=== PATIENT | female | born 1985 | race Caucasian/White ===

== ENCOUNTER 2024-01-24 08:25 | Outpatient (OUT) | payer BC, SELFPAY ==
--- NOTE | 2024-01-24 08:48 | XR_ITS ---
The [address] [address] Patient Name: DARY CAR MRN: [id number] date: 1985 Sex: F Assigned Patient Location: LAB Current Patient Location: LAB Accession/Order Number: [id number] Exam Date: 01/24/2024 09:20 Report Date: 01/24/2024 10:17 At the request of: YAMINI ROCHA Procedure: XR knee RT 3V PROCEDURE: XR knee RT 3V COMPARISON: None. HISTORY: Chronic Pain Of Right Knee M25.561 FINDINGS: BONES:No fracture, acute abnormality, or significant arthropathy. SOFT TISSUES:Moderate medial knee soft tissue swelling EFFUSION:None visible. OTHER: Negative. XR/XR knee RT 3V IMPRESSION: Medial knee soft tissue swelling of unknown etiology Electronically authenticated by: PAULINA CARDOZA Date: 01/24/2024 10:17
[2024-01-24 08:53] LABS: Basophils Percent Auto 0.3 % (0.2-2.0); Eosinophils Absolute Auto 0.2 10^3/uL (0.0-0.7); Eosinophils Percent Auto 2.9 % (0.9-7.0); Hematocrit 39.5 % (36.0-48.0); Hemoglobin 13.3 g/dL (12.0-16.0); Immature Granulocytes Abs Auto 0.02 10^3/uL (0.00-0.03); Immature Granulocytes Pct Auto 0.3 % (0.0-0.5); Lymphocytes Absolute Auto 2.1 10^3/uL (1.2-3.8); Mean Corpuscular HGB Conc 33.7 g/dL (29.9-35.2); Mean Corpuscular Hemoglobin 31.1 pg (26.7-34.0); Mean Corpuscular Volume 92.3 fL (81.0-99.0); Mean Platelet Volume 9.8 fL (9.5-13.5); Monocytes Absolute Auto 0.5 10^3/uL (0.3-0.8); Monocytes Percent Auto 7.8 % (1.7-12.0); Neutrophils Absolute Auto 3.2 10^3/uL (1.4-6.5); Neutrophils Percent Auto 53.7 % (43.0-75.0); Platelet Count 208 10^3/uL (150-450); Red Blood Count 4.28 10^6/uL (4.20-5.40); Red Cell Distribution Width 12.3 % (11.0-15.0); White Blood Count 5.9 10^3/uL (4.0-11.0)
[2024-01-24 08:54] LABS: Bilirubin Urine NEGATIVE (NEGATIVE); Blood Urine SMALL (NEGATIVE); Clarity Urine CLEAR (CLEAR); Color Urine YELLOW (YELLOW); Glucose Urine UA NEGATIVE (NEGATIVE); Ketones Urine NEGATIVE (NEGATIVE); Leukocyte Esterase Urine SMALL (NEGATIVE); Nitrite Urine NEGATIVE (NEGATIVE); Protein Urine NEGATIVE (NEG/TRACE); Urobilinogen Urine 0.2 EU/dL (0.2-1.0)
[2024-01-24 08:55] LABS: Urine Microscopic Indicated YES
[2024-01-24 09:06] LABS: Bacteria Urine NONE SEEN #/HPF (NONE SEEN); Cast Seen? NONE SEEN #/LPF (NONE SEEN); Mucus Urine NONE SEEN (NONE SEEN); RBC Urine NONE SEEN #/HPF (0-2); Squamous Epithelial Cell Urine RARE #/LPF (NONE/RARE)
[2024-01-24 09:07] LABS: Crystals Seen? None Seen #/HPF (None Seen); Trichomonas Urine SEEN (NONE SEEN)
[2024-01-24 09:36] LABS: Alanine Aminotransferase 50 U/L (14-59); Albumin Globulin Ratio 1.1; Albumin Level 3.6 g/dL (3.4-5.0); Alkaline Phosphatase 63 U/L (46-116); Anion Gap 9.4; Aspartate Amino Transferase 31 U/L (15-37); BUN Creatinine Ratio 15.2; Bilirubin Total 0.8 mg/dL (0.2-1.0); Carbon Dioxide 28.9 mmol/L (21.0-32.0); Chloride 106 mmol/L (98-107); Chol HDL Ratio 3.2; Cholesterol 221 mg/dL (<=200); Estimated GFR (African America >60 (>=60); Estimated GFR (Non-African Ame >60 (>=60); Globulin 3.4 g/dL; Glucose 94 mg/dL (74-106); HDL Cholesterol 68 mg/dL (40-60); Potassium 4.3 mmol/L (3.5-5.1); Sodium 140 mmol/L (136-145); Thyroid Stimulating Hormone 0.815 uIU/mL (0.358-3.740); Triglycerides 71 mg/dL (<=150); VLDL CHOLESTEROL 14.2 mg/dL
== END 2024-01-24 08:26 | disposition home or self-care (01) ==
LOC: LAB 08:29
PROVIDERS: PCP Nurse Practitioner; Visit Provider Nurse Practitioner
DX: M25.561 Pain in right knee (principal); Z78.9 Other specified health status; G89.29 Other chronic pain; M25.461 Effusion, right knee
CPT/HCPCS: 36415; 73562; 80053; 80061; 81001; 84443; 85025

== ENCOUNTER 2024-02-29 14:39 | Outpatient (OUT) | payer BC, SELFPAY ==
[2024-03-01 21:08] LABS: Trich vag by NAA Negative (Negative)
== END 2024-02-29 14:40 | disposition home or self-care (01) ==
PROVIDERS: PCP Nurse Practitioner; Visit Provider Nurse Practitioner
DX: A59.9 Trichomoniasis, unspecified (principal); Z20.2 Contact with and (suspected) exposure to infections with a predominantly sexual mode of transmission
CPT/HCPCS: 87491; 87591; 87661

== ENCOUNTER 2024-03-20 15:46 | Outpatient (OUT) | payer BC, SELFPAY ==
--- NOTE | 2024-03-20 15:49 | MR_ITS ---
[address] [address] Patient Name: DARY CAR MRN: [id number] date: 1985 Sex: F Assigned Patient Location: MRI Current Patient Location: Accession/Order Number: [id number] Exam Date: 03/20/2024 15:51 Report Date: 03/21/2024 17:32 At the request of: YAMINI ROCHA Procedure: MR knee RT wo con EXAM: MR knee RT wo con HISTORY: Chronic Pain Of Right Knee COMPARISON: 01/24/2024 TECHNIQUE: MRI images obtained with multiple sequences. MRI of the right knee without contrast. FINDINGS: Anterior cruciate and posterior cruciate ligaments are intact. Medial collateral ligament and lateral supporting structures are intact. Medial meniscus is intact. Compartment articular cartilage is preserved. Horizontal cleavage tear of the lateral meniscal body and posterior horn (sagittal PD fat-sat image 21, coronal PD fat-sat image 21). Lateral compartment articular cartilage is preserved. Patellofemoral articular cartilage is preserved. Extensor mechanism is intact. No large knee joint effusion. MR/MR knee RT wo con IMPRESSION: 1. Horizontal cleavage tear of the lateral meniscal body and posterior horn (sagittal PD fat-sat image 21, coronal PD fat-sat image 21). 2. Anterior cruciate and posterior cruciate ligaments are intact. 3. No full-thickness chondral loss. Electronically authenticated by: RENATO LYONS Date: 03/21/2024 17:32
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
== END 2024-03-20 15:47 | disposition home or self-care (01) ==
LOC: MRI 15:47
PROVIDERS: PCP Nurse Practitioner; Visit Provider Nurse Practitioner
DX: M25.561 Pain in right knee (principal); G89.29 Other chronic pain; S83.281A Other tear of lateral meniscus, current injury, right knee, initial encounter
CPT/HCPCS: 73721

== ENCOUNTER 2024-08-31 13:26 | Emergency (ER) | payer BC, SELFPAY ==
[2024-08-31 13:30] VITALS: BP 122/83; PULSE 96; TEMP 36.5; O2SAT 98; BMI 37.8
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
--- NOTE | 2024-08-31 13:53 | ED.URI1 ---
HPI - URI/Sore Throat General Chief Complaint: Upper Respiratory Infection Stated Complaint: FLU LIKE SYMPTOMS/ SORE THROAT Time Seen by Provider: 08/31/24 13:34 Source: patient Limitations: no limitations History of Present Illness HPI Narrative: 39-year-old female presents for 3-day history of head congestion and sore throat. She has not had a significant cough and has not had a known fever. No vomiting or diarrhea. Her ears feel plugged as well. Related Data Previous Rx's ?Medication ?Instructions ?Recorded acetaminophen 300 mg-codeine 30 mg 1 tab PO Q6H PRN pain #20 tabs 08/31/24 tablet loratadine 5 mg-pseudoephedrine ER 1 tab PO Q12H PRN nasal congestion 08/31/24 120 mg tablet,extended #20 tabs release,12hr (Claritin-D 12 Hour) Allergies Allergy/AdvReac Type Severity Reaction Status Date / Time Penicillins Allergy Severe Hives Verified 08/31/24 13:33 Review of Systems ROS Narrative A ten point review of systems is negative except as noted above. PFSH PFSH Social History Little interest or pleasure in doing things: not at all Feeling down, depressed, or hopeless: not at all Exam Narrative Exam Narrative: Nurses note and vital signs reviewed and patient is not hypoxic. General: The patient appears well and in no apparent distress. Patient is resting comfortably on cart. Skin: Warm, dry, no pallor noted. There is no rash noted. Head: Normocephalic, atraumatic Eye: Normal conjunctiva, no drainage Ears, Nose, Mouth, and Throat: oral mucosa is moist. Nares patent. No pharyngeal erythema or exudate. Both TMs and external canals are normal in appearance. Cardiovascular: Regular Rate and Rhythm Respiratory: Patient is in no distress, no accessory muscle use, lungs are clear to auscultation, no wheezing, rales or rhonchi Back: non-tender GI: Soft and nontender Musculoskeletal: No joint swelling Neurological: A&O, normal speech Psychiatric: Cooperative Constitutional Vital Signs, click to edit/add: Last Vital Signs Temp 97.7 F 08/31/24 13:30 Pulse 96 H 08/31/24 13:30 Resp 20 08/31/24 13:30 BP 122/83 08/31/24 13:30 Pulse Ox 98 08/31/24 13:30 Course Vital Signs Vital signs: Vital Signs Temperature 97.7 F 08/31/24 13:30 Pulse Rate 96 H 08/31/24 13:30 Respiratory Rate 20 08/31/24 13:30 Blood Pressure 122/83 08/31/24 13:30 Pulse Oximetry 98 08/31/24 13:30 Temperature 97.7 F 08/31/24 13:30 Pulse Rate 96 H 08/31/24 13:30 Respiratory Rate 20 08/31/24 13:30 Blood Pressure 122/83 08/31/24 13:30 Pulse Oximetry 98 08/31/24 13:30 MDM - URI/Sore Throat MDM Narrative Medical decision making narrative: COVID, influenza, and strep are all negative. Antibiotic not indicated and she will be treated symptomatically. Treatment diagnosis and follow-up were discussed with the patient. My clinical impression is that she has a viral illness. Differential Diagnosis Differential diagnosis: Likely upper respiratory infection, viral infection, influenza, pharyngitis and other (COVID, strep throat) Lab Data Attestation: I reviewed the patient's lab results. Labs: Lab Results 08/31/24 Range/Units 13:38 Influenza Type A Ag Negative Influenza Type B Ag Negative SARS-CoV-2 Ag (CV2AG) Negative (NEGATIVE) Streptococcus Screen Negative Discharge Plan Discharge Chief Complaint: Upper Respiratory Infection Clinical Impression: Upper respiratory infection Patient Disposition: Home, Self-Care Time of Disposition Decision: 14:35 Condition: Good Mode of Transportation: Private Vehicle Prescriptions / Home Meds: New acetaminophen-codeine 300-30 mg tablet 1 tab PO Q6H PRN (Reason: pain) Qty: 20 0RF Claritin-D 12 Hour 5-120 mg tablet extended release 12 hr 1 tab PO Q12H PRN (Reason: nasal congestion) Qty: 20 0RF Print Language: Brazilian Instructions: Upper Respiratory Infection (ED), Viral Syndrome (ED) Referrals: Linda Proctor NP [Primary Care Provider] - 1 week
[2024-08-31 14:00] LABS: Internal Control Within Normal Limits; Strep A Antigen Screen Negative
[2024-08-31 14:02] LABS: Influenza Virus A Antigen Negative; Influenza Virus B Antigen Negative; Internal Control Within Normal Limits
[2024-08-31 14:03] LABS: Internal Control Within Normal Limits; SARS-CoV-2 Ag NEGATIVE (NEGATIVE)
[2024-08-31] MEDS: CETIRIZINE HCL 10 MG TABLET PO (14:41)
[2024-08-31] MEDS: ACETAMINOPHEN 300 MG/ 30 MG CODEINE TABLET 1 TAB PO (14:42)
== END 2024-08-31 14:45 | disposition home or self-care (01) ==
PROVIDERS: Emergency Provider Emergency Medicine; PCP Nurse Practitioner
DX: J06.9 Acute upper respiratory infection, unspecified (principal)
CPT/HCPCS: 87070; 87150; 87804; 87811; 87880; 99283

== ENCOUNTER 2025-07-16 13:01 | Outpatient (RCR) | payer BC, SELFPAY | END 2025-08-15 10:47 | disposition home or self-care (01) | LOC: PT 13:01 | PROVIDERS: PCP Nurse Practitioner; Visit Provider Personal Emergency Response Attendant | DX: M25.561 Pain in right knee (principal); Z98.890 Other specified postprocedural states | CPT/HCPCS: 97010; 97014; 97110; 97140; 97161 ==